=== PATIENT | female | born 1950 | race Caucasian/White ===

== ENCOUNTER 2019-04-26 11:06 | Emergency (ER) | payer MEDICARE, OTHER ==
--- NOTE | 2019-04-26 11:58 | RAD ---
THREE VIEWS LEFT FOOT: COMPARISON: None. HISTORY: Left foot pain after a fall last night. FINDINGS: Three views of the left foot show no evidence of acute fracture or dislocation. No degenerative ledesma ges are seen. No soft tissue swelling is present. IMPRESSION: Unremarkable exam. POS: FIGUEROA
== END 2019-04-26 11:55 | disposition home or self-care (01) ==
LOC: SCSER 11:06
DX: S93.602A Unspecified sprain of left foot, initial encounter (principal); W01.0XXA Fall on same level from slipping, tripping and stumbling without subsequent striking against object, initial encounter

== ENCOUNTER 2020-10-23 07:14 | Outpatient (CLI) | payer MEDICARE, OTHER ==
--- NOTE | 2020-10-23 13:54 | NM ---
EXAM: Nuclear medicine hepatobiliary scan HISTORY: Elevated LFTs TECHNIQUE: A nuclear medicine hepatobiliary scan was performed after administration of 5.0 mCi of trey hnetium 99m mebrofenin. A gallbladder ejection fraction was performed after administration of Ensure by mouth. COMPARISON: None FINDINGS: Prompt uptake of the radiopharmaceutical by the liver is seen. No photopenic liver defects are seen. Biliary activity is seen within 15 minutes. Gallbladder activity is never seen and the exam was carried out to 4 hours. Bowel activity is seen within 15 minutes. A gallbladder ejection fraction could not be calculated. IMPRESSION: Nonfilling of the gallbladder. This could be secondary to acute cholecystitis. However, given the pat ient's presentation, this is less likely and it is felt that this patient likely has a false positive scan and the gallbladder may have been distended prior to performing the hepatobiliary scan and never emptied during the course of the exam. This is discussed with Dr. Musa via telephone at 1:50 PM on 10/23/2020.
== END 2020-10-23 07:15 | disposition home or self-care (01) ==
LOC: NM 07:14
PROVIDERS: ATTEND Surgery
DX: R79.89 Other specified abnormal findings of blood chemistry (principal); K82.8 Other specified diseases of gallbladder
CPT/HCPCS: 78226; A9537

== ENCOUNTER 2020-10-25 07:19 | Outpatient (CLI) | payer MEDICARE, OTHER ==
[2020-10-25 21:35] LABS: SARS-CoV-2 MS2 Positive; SARS-CoV-2 N Gene Negative; SARS-CoV-2 S Gene Negative; SARS-CoV-2 by NAA Not Detected (NotDetected); SARS-CoV-2 orf1ab Negative
== END 2020-10-25 07:20 | disposition home or self-care (01) ==
LOC: LABBT 07:19
PROVIDERS: ATTEND Surgery
DX: Z01.818 Encounter for other preprocedural examination (principal); K42.9 Umbilical hernia without obstruction or gangrene; Z20.828 Contact with and (suspected) exposure to other viral communicable diseases
CPT/HCPCS: 87635; 93005; 93010; U0003

== ENCOUNTER 2020-10-30 05:55 | Inpatient (IN) | payer MEDICARE, OTHER ==
[2020-10-28 14:54] VITALS: BMI 20.7
[2020-10-30] MEDS ORDERED: Fentanyl 100 MCG/2 ML VIAL ONE ×4 (06:33→09:44)
[2020-10-30] MEDS ORDERED: Lidocaine 1% w/Epinephrine 1:100K 20 ML VIAL ONE (06:35)
[2020-10-30] MEDS ORDERED: Bupivacaine PF 0.5% 30 ML VIAL ONE (06:35)
[2020-10-30] MEDS ORDERED: Iothalamate Meglumine 60% 50 ML VIAL FS ONE (07:49)
[2020-10-30] MEDS ORDERED: Promethazine HCl 25 MG/ML VIAL SLOW IVP PRN (09:02)
[2020-10-30] MEDS ORDERED: Promethazine HCl 25 MG/ML VIAL IM PRN ×2 (09:02→09:03)
[2020-10-30] MEDS ORDERED: Ondansetron HCl/PF 4 MG/2 ML Vial IVP PRN ×2 (09:02→10:30)
[2020-10-30] MEDS ORDERED: Dextrose 5% in Water 1,000 ML IV PRN (09:03)
[2020-10-30] MEDS ORDERED: Mag-Al 1200 mg/1200 mg/30 ML UDCUP PO PRN (09:03)
[2020-10-30] MEDS ORDERED: hydrALAZINE 20 MG/ML VIAL SLOW IVP PRN (09:03)
[2020-10-30] MEDS ORDERED: Dextrose 50% Abboject 50 ML SYRINGE SLOW IVP PRN (09:03)
[2020-10-30] MEDS ORDERED: Calcium Carbonate 500 MG ChewTAB PO PRN (09:03)
[2020-10-30] MEDS ORDERED: Morphine 2 MG/ML VIAL SLOW IVP PRN (09:03)
[2020-10-30] MEDS ORDERED: Ondansetron PF 4 MG/2 ML Vial IVP PRN (09:03)
[2020-10-30] MEDS ORDERED: Promethazine HCl 25 MG/ML VIAL ONE (09:06)
[2020-10-30] MEDS ORDERED: D5 1/2 NS w/20 mEq KCL 1,000 ML ONE (09:18)
[2020-10-30] MEDS ORDERED: Ketorolac Tromethamine 30 MG/ML VIAL ONE (09:33)
[2020-10-30] MEDS ORDERED: Lidocaine 1% PF 5 ML VIAL ONE (09:33)
[2020-10-30] MEDS ORDERED: Ondansetron PF 4 MG/2 ML Vial ONE (09:33)
[2020-10-30] MEDS ORDERED: Glycopyrrolate 0.2 MG/ML 5 ML SYRINGE ONE (09:33)
[2020-10-30] MEDS ORDERED: Rocuronium Bromide 10 MG/ML (10ML VIAL) ONE (09:33)
[2020-10-30] MEDS ORDERED: Dexamethasone 20 MG/5 ML VIAL ONE (09:33)
[2020-10-30] MEDS ORDERED: PROPOFOL 200 MG/20 ML VIAL ONE (09:33)
[2020-10-30] MEDS ORDERED: PHENYLEPHRINE-NS 100 MCG/ML 10 ML SYRINGE ONE (09:33)
--- NOTE | 2020-10-30 09:33 | OP ---
DATE OF PROCEDURE: 10/30/2020 PREOPERATIVE DIAGNOSES: Cholecystitis, umbilical hernia, elevated liver function. PROCEDURE PERFORMED: Laparoscopic cholecystectomy with intraoperative cholangiogram, umbilical hernia repair. INDICATION FOR PROCEDURE: The patient is a 70-year-old female, who has been having severe right upper quadrant pain. Ultrasound was done at an outside facility did not really show much, but her LFTs were elevated including bilirubin, so a cholangiogram was performed. Also, preoperatively, she had a HIDA scan that showed nonvisualization of the gallbladder. FINDINGS: Very distended, hydrops gallbladder with inflammation distally. The cholangiogram showed dilated biliary system with no flow into the duodenum and what appear to be an obstructing stone distally. DESCRIPTION OF PROCEDURE: After informed consent was obtained, the patient was taken to the operating room and given general endotracheal anesthesia, placed in the supine position, abdomen was prepped and draped in usual fashion. Local anesthesia was infiltrated subcutaneously and deep, and a subumbilical incision was performed. The skin of the umbilicus was dissected off the hernia sac. The hernia sac excised. The 2 stay sutures of 0 Vicryl placed either side of midline, and a blunt 12-mm trocar inserted. Pneumoperitoneum was created to a pressure of 15 mmHg. A 0-degree laparoscope inserted under direct vision. Three 5 mm ports placed subcostally. The gallbladder was found and grasped, was very distended, could not be grasped. An aspirating needle was inserted and 60 mL of thick, mucousy, bilious-tinged fluid removed from the gallbladder with decompression. Then, the gallbladder grasped, advanced superiorly. The peritoneum was dissected distally to expose the cystic duct, artery, and critical view. A clip was placed at the base of the gallbladder on the cystic duct. The cystic duct incised and an Arrow cholangiocatheter inserted. Intraoperative endoscopy was performed utilizing fluoroscopy. This showed a very dilated extrahepatic biliary system and there was a meniscus sign distally consistent with an obstructing stone and no flow into the duodenum. We tried several shots trying to flush this out, did not work, so this was aborted. The cystic duct was triply ligated with hemoclips and divided. The artery was triply ligated with hemoclips and divided. The gallbladder removed from its fossa utilizing electrocautery. It was placed in an endosac and removed from the abdomen in an endosac. Hemostasis was assured. The hernia defect was closed with interrupted cnoobn-pc-innbml of 0 Ethibond. Wound thoroughly irrigated. Subcu reapproximated with interrupted 3-0 Vicryl. Skin closed with interrupted 4-0 Rapide. Dermabond applied. The patient tolerated the procedure well, transferred to Recovery in good condition. Sponge and needle count verified correct x2. Job ID: [id number]
[2020-10-30] MEDS ORDERED: Non-Formulary Medication 1 EACH PO PRN (10:17)
[2020-10-30 10:24] LABS: ALT (SGPT) 196 U/L (8-55); AST (SGOT) 161 U/L (5-34); Albumin 3.4 g/dL (3.4-4.8); Alkaline Phosphatase 403 U/L (40-110); Bilirubin, Direct 2.7 mg/dL (0.1-0.3); Bilirubin, Total 3.5 mg/dL (0.2-1.2); Lipase 37 U/L (8-78); Protein, Total 6.6 g/dL (6.0-8.3)
[2020-10-30] MEDS ORDERED: Morphine 4 MG/ML VIAL ONE (10:25)
[2020-10-30] MEDS ORDERED: Morphine Sulfate 2 MG/ML SYRINGE SLOW IVP PRN (10:30)
[2020-10-30] MEDS ORDERED: PACU-Morphine 4MG/ML VIAL SLOW IVP PRN (10:30)
[2020-10-30] MEDS ORDERED: Promethazine HCl 25 MG/ML VIAL IM/IV PRN (10:30)
--- NOTE | 2020-10-30 11:43 | RAD ---
OPERATIVE CHOLANGIOGRAM 1 VIEW: Date: 10/30/2020 HISTORY: Intraoperative film. FINDINGS: Single film shows filling defect at the ampullar level which suggests the possibility of an obstructi ng calculus at this level. IMPRESSION: Filling defect at the ampullar level. POS: JOSUÉ
[2020-10-30] MEDS ORDERED: cefOXitin Sodium/Dextrose,Iso 2 GM in Premix Bag 1 BAG IVPB SCH (14:00)
[2020-10-30] MEDS: D5 1/2 NS w/20 mEq KCL 1,000 ML IV SCH ×3 (15:14→20:24)
[2020-10-30] MEDS ORDERED: diphenhydrAMINE 50 MG/ML VIAL IVP PRN (17:17)
[2020-10-30] MEDS ORDERED: diphenhydrAMINE 25 MG CAP PO PRN (17:17)
[2020-10-30] MEDS: cefOXitin Sodium/Dextrose,Iso 2 GM in Premix Bag 1 BAG IVPB SCH (17:39)
[2020-10-30] MEDS: Morphine 4 MG/ML VIAL SLOW IVP PRN ×2 (19:33→22:22)
[2020-10-30] MEDS: Famotidine 20 MG TAB PO SCH (20:23)
[2020-10-30] MEDS: Famotidine/PF 20 mg/2ml Vial SLOW IVP SCH (20:23)
[2020-10-30] MEDS ORDERED: traMADol HCl 50 MG TAB PO PRN ×2 (20:45→20:46)
[2020-10-31] MEDS: cefOXitin Sodium/Dextrose,Iso 2 GM in Premix Bag 1 BAG IVPB SCH ×2 (01:04→10:21)
--- NOTE | 2020-10-31 01:13 | CON ---
DATE OF CONSULTATION: 10/30/2020 REASON FOR CONSULTATION: Possible common duct stone. HISTORY OF PRESENT ILLNESS: Ms. Wilkerson is a 70-year-old female who underwent an umbilical hernia repair and laparoscopic cholecystectomy this morning by Dr. Oliver Musa. She was noted to have a non-flow intraoperative cholangiogram suggesting a stone in the distal duct. I reviewed the IO image and concurred. Symptomatically, she reports having severe abdominal pain started approximately 5 days ago. She did have nausea, but without vomiting. There was no fever. The pain gradually subsided. Going past over the last several months, she did have right-sided pain, but at that time was localized more in the lower part. Workup included negative ultrasound and HIDA scan earlier. At the same time, she had diarrhea and had extensive testing done by Dr. Britt. All the stool studies were negative. Upper endoscopy showed a small hiatal hernia with erosive esophagitis. Her colonoscopy was unremarkable with biopsies negative for any microscopic colitis. She was subsequently placed on bile sequestrant with good response. She has not had any further diarrhea. Her GI review of system was otherwise negative except for dark urine for the last several days and pruritus. ALLERGIES: INCLUDE ACETAMINOPHEN, HYDROCODONE, AND PENICILLIN. HOME MEDICATIONS: Include; 1. Atorvastatin 40 mg at bedtime. 2. Vitamin C. 3. Caltrate. 4. Osphena 60 mg daily. 5. Omeprazole 20 mg daily. 6. Multivitamin. 7. Fluoxetine 20 mg daily. PAST MEDICAL HISTORY: Include; 1. GE reflux disease. 2. Hyperlipidemia. 3. History of colon polyps. 4. Endometriosis. PAST SURGICAL HISTORY: Include cholecystectomy, umbilical hernia repair, hysterectomy, and tubal ligation. SOCIAL HISTORY: The patient consume rare alcohol. Never smoker. She is . FAMILY HISTORY: Negative for any known GI problem, liver disease, or GI malignancy except for mother with the reflux. REVIEW OF SYSTEMS: Ten-point review of system was negative, no other reported symptoms other than listed above. PHYSICAL EXAMINATION: VITAL SIGNS: Temperature is 98.2, blood pressure 122/68, and pulse of 83. GENERAL: She is alert and without distress. HEENT: Shows mildly icteric sclerae. Oropharynx is clear. NECK: Supple. CV: Shows normal S1, S2. Regular rate and rhythm. CHEST: Shows a breath sounds. ABDOMEN: Mildly tender. No guarding or rebound. She does have bowel sounds. EXTREMITIES: Shows no edema. LABORATORY DATA: Bilirubin 3.5, AST 161, ALT 196, alkaline phosphatase 43 and lipase 37. ASSESSMENT: 1. Choledocholithiasis as suggested on IOC. The patient does have clinical symptoms with elevation of LFTs. She is slightly jaundiced and does have pruritus. 2. Status post cholecystectomy earlier this morning along with umbilical hernia repair. RECOMMENDATION: Proceed with ERCP/papillotomy/stone extraction in a.m. by Dr. Howard. Indication including risk not limited to, bleeding, perforation, and pancreatitis were reviewed with Ms. Wilkerson. All questions were answered. She is willing to proceed. Job ID: [id number]
[2020-10-31] MEDS: Fentanyl 100 MCG/2 ML VIAL SLOW IVP PRN ×2 (01:14→05:50)
[2020-10-31] MEDS: D5 1/2 NS w/20 mEq KCL 1,000 ML IV SCH (05:34)
[2020-10-31 07:32] LABS: Lipase 1692 U/L (8-78)
[2020-10-31] MEDS ORDERED: Iothalamate Meglumine 60% 50 ML VIAL FS ONE (07:34)
[2020-10-31] MEDS ORDERED: Indomethacin 50 MG SUPP ONE (07:35)
[2020-10-31] MEDS ORDERED: Fentanyl 100 MCG/2 ML VIAL ONE ×2 (07:36→08:21)
[2020-10-31 07:38] LABS: Mean Corpuscular HGB CONC 31.8 g/dL (32.0-36.0); Mean Corpuscular Hemoglobin 32.1 pg (27.0-31.0); Platelet Count 384 thou/uL (130-400); Red Blood Cell (RBC) Count 3.75 mill/uL (4.20-5.40)
[2020-10-31 08:40] LABS: ALT (SGPT) 258 U/L (8-55); AST (SGOT) 263 U/L (5-34); Albumin 3.5 g/dL (3.4-4.8); Alkaline Phosphatase 471 U/L (40-110); Anion Gap 15 mmol/L (10-20); BUN (Urea Nitrogen) 7 mg/dL (9.8-20.1); Bilirubin, Total 7.5 mg/dL (0.2-1.2); Calc. Creatinine Clearance 60 mL/min (70-130); Calcium 8.4 mg/dL (7.8-10.44); Carbon Dioxide 20 mmol/L (23-31); Chloride 98 mmol/L (98-107); Globulin 3.4 g/dL (2.4-3.5); Glucose 125 mg/dL (83-110); Potassium 4.3 mmol/L (3.5-5.1); Protein, Total 6.9 g/dL (6.0-8.3); Sodium 129 mmol/L (136-145)
[2020-10-31 08:52] LABS: Band 19 % (5-11); Lymphocytes 8 % (21-51); MDiff Complete? YES; Mean Platelet Volume 8.6 fL (7.4-10.4); Monocytes 3 % (0-10); Neutrophil 70 % (42-75); White Blood Cell (WBC) Count 22.4 thou/uL (4.8-10.8)
[2020-10-31] MEDS ORDERED: D5 1/2 NS w/20 mEq KCL 1,000 ML IV SCH (09:58)
[2020-10-31] MEDS ORDERED: Promethazine HCl 25 MG/ML VIAL SLOW IVP PRN (10:05)
[2020-10-31] MEDS ORDERED: Ondansetron HCl/PF 4 MG/2 ML Vial IVP PRN (10:05)
[2020-10-31] MEDS ORDERED: Promethazine HCl 25 MG/ML VIAL IM PRN (10:05)
--- NOTE | 2020-10-31 10:08 | RAD ---
EXAM: XR ERCP DATE: 10/31/2020 12:00 AM INDICATION: Stone removal COMPARISON: Intraoperative cholangiogram dated October 30, 2020. FINDIN fluoroscopic spot images were obtained from an ERCP. Findings demonstrate on the initial retrograde opacification a small focal filling defect within the central common bile duct. There are also additional smaller filling defects on the initial retrograde opacification image likely rela monica to air bubbles. Subsequent image demonstrates placement of a balloon catheter within the mid common bile duct with a small filling defect seen proximal to the balloon likely reflective of stone. Subsequent images demonstrate no residual filling defects within the opacified common bile duct with no significant obstruction. IMPRESSION:ERCP for removal of a common bile duct stone. Transcribed Date/Time: 10/31/2020 10:16 AM
[2020-10-31] MEDS ORDERED: Ondansetron PF 4 MG/2 ML Vial ONE (10:12)
[2020-10-31] MEDS ORDERED: Lidocaine 1% PF 5 ML VIAL ONE (10:12)
[2020-10-31] MEDS ORDERED: PHENYLEPHRINE-NS 100 MCG/ML 10 ML SYRINGE ONE (10:12)
[2020-10-31] MEDS ORDERED: Dexamethasone 20 MG/5 ML VIAL ONE (10:12)
[2020-10-31] MEDS ORDERED: PROPOFOL 200 MG/20 ML VIAL ONE (10:12)
[2020-10-31] MEDS ORDERED: Glycopyrrolate 0.2 MG/ML 5 ML SYRINGE ONE (10:12)
[2020-10-31] MEDS ORDERED: Rocuronium Bromide 10 MG/ML (10ML VIAL) ONE (10:12)
[2020-10-31] MEDS: Pantoprazole 40 MG VIAL IVP SCH (11:54)
[2020-10-31] MEDS: Famotidine 20 MG TAB PO SCH (12:02)
[2020-10-31] MEDS: Famotidine/PF 20 mg/2ml Vial SLOW IVP SCH (12:02)
[2020-10-31] MEDS: Sodium Chloride 0.9% 1,000 ML IV SCH ×3 (12:32→20:16)
--- NOTE | 2020-10-31 15:35 | PRG ---
DATE OF SERVICE: 10/31/2020 SUBJECTIVE: Yesterday, the patient had a cholecystectomy and cholangiogram, showed complete obstruction of the distal common bile duct. Last night, she had tremendous pain that was very difficult to control. This morning, she is currently in the endoscopy suite, getting ERCP. They were able to remove multiple stones from the distal common bile duct and Dr. Howard reported there was pus in there as well, but he swept it and its clean now and draining very well. OBJECTIVE: Her temperature is 98.7, pulse 95, and blood pressure 155/79. LABORATORY DATA: Her white count went up to 22,000, hemoglobin and hematocrit are 12 and 37, platelet count 384. Her bilirubin went up to 7.5. LFTs were all elevated, and her lipase went up to 1600. ASSESSMENT: Cholangitis, acute cholecystitis, and biliary pancreatitis. PLAN: She probably will need to spend the night. IV antibiotics. May be able to discharged tomorrow. Job ID: [id number]
[2020-11-01] MEDS: Sodium Chloride 0.9% 1,000 ML IV SCH ×3 (01:03→19:27)
[2020-11-01 06:06] LABS: ALT (SGPT) 164 U/L (8-55); AST (SGOT) 153 U/L (5-34); Albumin 2.7 g/dL (3.4-4.8); Alkaline Phosphatase 381 U/L (40-110); Anion Gap 13 mmol/L (10-20); BUN (Urea Nitrogen) 7 mg/dL (9.8-20.1); Bilirubin, Total 7.2 mg/dL (0.2-1.2); Calc. Creatinine Clearance 65 mL/min (70-130); Carbon Dioxide 20 mmol/L (23-31); Chloride 108 mmol/L (98-107); Globulin 2.8 g/dL (2.4-3.5); Glucose 74 mg/dL (83-110); Lipase 65 U/L (8-78); Potassium 3.8 mmol/L (3.5-5.1); Protein, Total 5.5 g/dL (6.0-8.3); Sodium 137 mmol/L (136-145)
[2020-11-01 07:11] LABS: #Eosinphils 0.1 thou/uL (0.0-0.7); #Lymphocytes 1.4 thou/uL (1.20-3.40); #Monocytes 0.6 thou/uL (0.11-0.59); #Neutrophils 9.4 thou/uL (1.40-6.50); %Basophils 0.2 % (0.0-1.0); %Eosinophils 0.4 % (0.0-10.0); %Lymphocytes 11.9 % (21.0-51.0); %Monocytes 5.2 % (0.0-10.0); %Neutrophils 82.3 % (42.0-75.0); Hemoglobin 9.7 g/dL (12.0-16.0); Mean Corpuscular HGB CONC 33.7 g/dL (32.0-36.0); Mean Corpuscular Hemoglobin 33.9 pg (27.0-31.0); Mean Platelet Volume 8.7 fL (7.4-10.4); Platelet Count 231 thou/uL (130-400); RBC Distribution Width 12.8 % (11.5-14.5); Red Blood Cell (RBC) Count 2.85 mill/uL (4.20-5.40); White Blood Cell (WBC) Count 11.4 thou/uL (4.8-10.8)
[2020-11-01] MEDS: Pantoprazole 40 MG VIAL IVP SCH (09:45)
--- NOTE | 2020-11-01 15:31 | PRG ---
DATE OF SERVICE: 11/01/2020 SUBJECTIVE: The patient is feeling much better after ERCP and stone extraction. The pain is really non-existent. She is up walking. No nausea or vomiting. She is tolerating clear liquids. OBJECTIVE: GENERAL: On exam, she looks good. VITAL SIGNS: Her temperature is 97.7, pulse 81, and blood pressure 134/67. SKIN: Incisions are healing well. There is no evidence of infection. LABORATORY DATA: Her white count is down from 22 to 11, H and H of 9.7 and 28, and platelet count 231. Her bilirubin is still 7.2, but it is down from 7.5. Her LFTs are all coming down. Her lipase is back to normal. ASSESSMENT: Doing well. PLAN: Probable discharge tomorrow. Job ID: [id number]
--- NOTE | 2020-11-01 19:00 | PRG ---
DATE OF SERVICE: 10/31/2020 SUBJECTIVE: Ms. Wilkerson is feeling much better today. She is tolerating liquid diet. She would like to eat some solids. She has some soreness in the abdomen, but not pain. MEDICATIONS: 1. Normal saline 200, has been held. 2. Levofloxacin daily. 3. Protonix 40 mg IV daily. 4. Tramadol p.r.n. 5. Morphine p.r.n. REVIEW OF SYSTEMS: Negative for melena. Negative for nausea, vomiting. Negative for fever, chills. PHYSICAL EXAMINATION: VITAL SIGNS: Temperature is 97.7, pulse is 81, blood pressure 134/67. ABDOMEN: Soft. Nontender and nondistended. Trocar sites are clean and dry. . HEART: Regular without clicks or murmurs. LABORATORY DATA: White count is down from 22,000 to 11,000; hemoglobin is 9.7, down from 12; MCV 101; and platelet count 231. Sodium 137, potassium 3.8, BUN and creatinine 7 and 0.6. Bilirubin is 7.2 today, was 7.5 yesterday. AST is down from 260 to 153, ALT from 258 to 164, alkaline phosphatase of 471 to 381. Lipase from 1692 to 65. ASSESSMENT: 1. Biliary pancreatitis, resolving. 2. Cholangitis, resolving. 3. Status post cholecystectomy. 4. Drop in hemoglobin, likely related to aggressive hydration. There are no signs of bleeding or melena by history and she has a normal BUN, which will go against any upper gastrointestinal bleeding related to her ERCP. She overall feels much better than yesterday. RECOMMENDATIONS: 1. Advance diet as tolerated. 2. Hep-Lock IV. 3. Repeat labs in the morning. Hopefully, she can go home tomorrow morning. Job ID: [id number]
[2020-11-02 05:48] LABS: #Basophils 0.1 thou/uL (0.0-0.2); #Eosinphils 0.2 thou/uL (0.0-0.7); #Lymphocytes 1.4 thou/uL (1.20-3.40); #Monocytes 0.6 thou/uL (0.11-0.59); #Neutrophils 4.5 thou/uL (1.40-6.50); %Basophils 0.8 % (0.0-1.0); %Eosinophils 2.7 % (0.0-10.0); %Monocytes 8.6 % (0.0-10.0); %Neutrophils 66.9 % (42.0-75.0); Hemoglobin 10.4 g/dL (12.0-16.0); Mean Corpuscular HGB CONC 33.3 g/dL (32.0-36.0); Mean Corpuscular Volume 99.1 fL (78.0-98.0); Mean Platelet Volume 8.3 fL (7.4-10.4); Platelet Count 284 thou/uL (130-400); RBC Distribution Width 12.8 % (11.5-14.5); Red Blood Cell (RBC) Count 3.16 mill/uL (4.20-5.40); White Blood Cell (WBC) Count 6.7 thou/uL (4.8-10.8)
[2020-11-02 06:13] LABS: ALT (SGPT) 146 U/L (8-55); AST (SGOT) 123 U/L (5-34); Albumin 2.8 g/dL (3.4-4.8); Alkaline Phosphatase 441 U/L (40-110); Anion Gap 12 mmol/L (10-20); BUN (Urea Nitrogen) 5 mg/dL (9.8-20.1); Calc. Creatinine Clearance 62 mL/min (70-130); Calcium 8.5 mg/dL (7.8-10.44); Carbon Dioxide 24 mmol/L (23-31); Chloride 107 mmol/L (98-107); Globulin 3.1 g/dL (2.4-3.5); Glucose 99 mg/dL (83-110); Lipase 98 U/L (8-78); Potassium 3.6 mmol/L (3.5-5.1); Protein, Total 5.9 g/dL (6.0-8.3); Sodium 139 mmol/L (136-145)
--- NOTE | 2020-11-02 07:34 | OP ---
DATE OF PROCEDURE: 10/31/2020 PROCEDURES: ERCP, sphincterotomy, removal of stones, control bleeding. PREPROCEDURE DIAGNOSIS: 1. Status post laparoscopic cholecystectomy with occlusion cholangiogram showing non draining of the bile duct. 2. Leukocytosis, 22,000 white blood cell count. 3. Increasing bilirubin from 3.5-7.5, AST and ALT from 161 and 196 to 263 and 258, alkaline phosphatase from 403 to 417 and lipase from 37 to 60 and 92, all suspicious for biliary pancreatitis worsening and possible cholangitis. ANESTHESIA: General endotracheal anesthesia. POSTPROCEDURE DIAGNOSIS: 1. Cholangitis is manifested by pus in the bile and pus draining from the ampulla, which is engorged and enlarged. 2. Status post sphincterotomy and removal of multiple common bile duct stones and pus with flushing of the duct with negative occlusion cholangiogram at the termination of procedure. Multiple stones were removed. 3. Post sphincterotomy bleeding, controlled with epinephrine 1:10,000 3 mL at the apex of the sphincterotomy site and 7-Estonian heater probe cautery. RECOMMENDATIONS: 1. Continue IV antibiotics. 2. Increase IV fluids 1 L in recovery and then 150 mL an hour. 3. Monitor H and H and liver function tests and lipase closely. PROCEDURE IN DETAIL: After the patient was informed of the risks, benefits, and possible complications of endoscopy including perforation, reaction to medications, and aspiration, informed consent was obtained. The patient was brought to endoscopy suite, where she was sedated in gradual fashion. Once she was comfortable, she was placed in the prone position on fluoroscopy table. In light of her LFTs, she was given a bolus of 1 L of fluid during the procedure, and she had Indocin suppositories 100 mg rectally to help prevent worsening of pancreatitis or post ERCP pancreatitis. The patient's was informed of the patient's pancreatitis as these labs were noted after the patient was sedated. The endoscope was then put through the bite block. The esophagus carefully intubated. The ampulla was brought into view, which was edematous and enlarged with purulent discharge. Free cannulation of the common bile duct is obtained without injection. No injection was performed of the pancreatic duct or manipulation during the procedure. A wire was placed up into the common bile duct. Occlusion cholangiogram was performed, multiple filling defects in the distal mid common bile duct. No evidence of strictures or leaks from the cystic duct stump or intrahepatic ducts. Generous sphincterotomy was then performed over the guidewire. Exchange was made for balloon and stones removed from the duct, probably about 10 in total. Copious amounts of purulent bile removed as well. The duct was irrigated with saline until the bile was clear. At this time, there was bleeding noted from the apex of the sphincterotomy. There were no signs of perforation. This was controlled with epinephrine 1:10,000 and heater probe cautery 7-Estonian at the apex of the sphincterotomy with good effect. At this point time, another occlusion cholangiogram was performed removing two more stones. A final occlusion cholangiogram showed no filling defects and prompt drainage of bile and contrast through the sphincterotomy. It was deemed that there was not any significant edema at the ampulla to necessitate a stent. The duct was swept one more time, no further stones were removed, and this was from the common hepatic duct all the way down to the ampulla. Then, occlusion cholangiogram was performed as the balloon was released and contrast drained spontaneously. Once bile was noted to drain from the ampulla, no bleeding was identified. The procedure was terminated. The patient was brought to recovery room in stable condition. Job ID: [id number]
[2020-11-02] MEDS: Pantoprazole 40 MG VIAL IVP SCH (11:28)
[2020-11-02 12:45] VITALS: BP 135/66; TEMP 97.4
--- NOTE | 2020-11-04 07:24 | DIS ---
DATE OF ADMISSION: 10/30/2020 DATE OF DISCHARGE: 11/02/2020 ADMITTING DIAGNOSES: 1. Cholecystitis, umbilical hernia, elevated liver enzymes. 2. Positive intraoperative cholangiogram at the time of cholecystectomy. DISCHARGE DIAGNOSES: 1. Hydrops of gallbladder. 2. Choledocholithiasis. 3. Cholangitis. 4. Pancreatitis. PROCEDURES: Laparoscopic cholecystectomy with intraoperative cholangiogram that was positive the following day. ERCP, hospital day two on 10/31. Before that procedure, it was noted that her lipase is elevated to 1000. She had leukocytosis of 22, bilirubin increased from 3.5 to 7.5, alkaline phosphatase of 471. AST and ALT 263 and 258. She had choledocholithiasis and cholangitis noted at the time of the ERCP. HOSPITAL COURSE: The patient was brought in as an outpatient for laparoscopic cholecystectomy for suspected biliary colic. She had had very vague imaging preoperatively, but apparently had symptoms consistent with biliary colic. Preoperative imaging had not shown ulcers, stones, or choledocholithiasis. These were apparently performed at [facility]. As an outpatient, Dr. Musa had to do a hepatobiliary scan, which showed nonfilling gallbladder, and no drainage into the duodenum. Therefore, she was scheduled for a laparoscopic cholecystectomy and a hernia repair. This was done on the , and at that time, she had an IOC that was positive, so she was admitted. On the following day, she had a white count of 22,000, hemoglobin of 12. Bilirubin increased from 3.5 to 7.5, and lipase had increased from 37 to 1692. She was brought for ERCP with concern for cholangitis and biliary pancreatitis. ERCP confirmed cholangitis. Multiple stones removed from the duct. She was resuscitated aggressively and placed on Levaquin. She remained afebrile. Following day, her bilirubin was still up at 7.2, however, on the , it was down to 4. AST and ALT had dropped to 123 and 146 and alk phos was still mildly elevated at 441, down from a peak of 471. No blood cultures have been obtained. She showed no signs of melena. Stable hemoglobin at 10.4. She was eating and tolerating diet with a normal lipase at 65 and 98 in the last two days of admission. DISCHARGE DISPOSITION: Follow up with Dr. Musa in 2 weeks. Follow up with Dr. Britt in 2 weeks. Levaquin 500 mg p.o. daily for five more days as she has never had blood cultures drawn, and this would cover for E coli bacteremia if she developed it in association with her cholangitis. Probiotics for two weeks. Resume other home medicines. Job ID: [id number]
== END 2020-11-02 12:45 | disposition home or self-care (01) | DRG 417 ==
LOC: SDC 05:55 → SURG A 09:08
PROVIDERS: ADMIT Surgery; ATTEND Surgery
PROC: 0FT44ZZ Resection of Gallbladder, Percutaneous Endoscopic Approach (ICD-10-PCS; principal; 2020-10-30)
PROC: 0WQF4ZZ Repair Abdominal Wall, Percutaneous Endoscopic Approach (ICD-10-PCS; 2020-10-30)
PROC: BF131ZZ Fluoroscopy of Gallbladder and Bile Ducts using Low Osmolar Contrast (ICD-10-PCS; 2020-10-30)
PROC: 0FC98ZZ Extirpation of Matter from Common Bile Duct, Via Natural or Artificial Opening Endoscopic (ICD-10-PCS; 2020-10-31)
PROC: 0F7C8ZZ Dilation of Ampulla of Vater, Via Natural or Artificial Opening Endoscopic (ICD-10-PCS; 2020-10-31)
DX: K80.63 Calculus of gallbladder and bile duct with acute cholecystitis with obstruction (principal); K85.10 Biliary acute pancreatitis without necrosis or infection; K82.1 Hydrops of gallbladder; K22.10 Ulcer of esophagus without bleeding; K83.09 Other cholangitis; R71.0 Precipitous drop in hematocrit; K21.9 Gastro-esophageal reflux disease without esophagitis; E78.5 Hyperlipidemia, unspecified; K42.9 Umbilical hernia without obstruction or gangrene; Z79.899 Other long term (current) drug therapy; Z90.710 Acquired absence of both cervix and uterus; Z90.89 Acquired absence of other organs; Z88.0 Allergy status to penicillin; Z88.6 Allergy status to analgesic agent; Z88.8 Allergy status to other drugs, medicaments and biological substances; Z98.51 Tubal ligation status
CPT/HCPCS: 36415; 47532; 74330; 80053; 80076; 82150; 83690; 85025; 88304; C9113; J0690; J0694; J1100; J1610; J1885; J1956; J2270; J2405; J2550; J2704; J3010; J3480; Q0163; S0020